=== PATIENT | female | born 1955 | race Caucasian/White ===

== ENCOUNTER → 2016-09-25 | Outpatient (CLI) | payer MEDICARE, BC | LOC: PLAB 15:26 | PROVIDERS: ATTEND Dermatology | DX: L43.9 Lichen planus, unspecified (principal) | CPT/HCPCS: 36415; 86038 ==

== ENCOUNTER → 2016-11-17 | Outpatient (CLI) | payer MEDICARE, BC | LOC: PLAB 12:13 | PROVIDERS: ATTEND Dermatology | DX: Z79.899 Other long term (current) drug therapy (principal) | CPT/HCPCS: 36415; 86704; 86803 ==